=== PATIENT | male | born 1955 | race African-American/Black ===

== ENCOUNTER 2016-03-16 21:04 | Inpatient (IN) | payer OTHER ==
[~2016-03-16] VITALS: Ht 172.7 cm; Wt 49.4 kg
[2016-03-16 21:04] VITALS: BP 117/72
[~2016-03-16 21:04] MED LIST: DOXYCYCLINE100 MG PO; LEUKINE SC; LEVAQUIN750 M1 PO; PROAIR HFA8.5 GM IH; VANCOCIN1000 MG/25 IV; ZITHROMAX250 MG PO; ZOSYN 50 ML50 ML IV; [UNRECOGNIZED DRUG - OTHER] OP
[2016-03-16 21:57] LABS: HEMATOCRIT 28.5 % (42.0-52.0); HEMOGLOBIN 9.2 g/dl (14.0-18.0); LYMPH # 0.4 10*3/uL (1.3-4.4); LYMPH % 7.3 % (27.0-41.0); MEAN CELL VOLUME 89.6 fl (80.0-94.0); MEAN CORPUSCULAR HGB 28.9 pg (27.0-31.0); MEAN CORPUSCULAR HGB CONC 32.3 g/dl (33.0-37.0); MEAN PLATELET VOLUME 8.8 fl (9.6-12.3); MONO # 0.6 10*3/uL (0.1-1.0); MONO % 10.7 % (3.0-9.0); NEUT # 4.9 10*3/uL (2.3-7.9); NEUT % 81.3 % (47.0-73.0); PLATELET COUNT AUTOMATED 78 10*3/uL (130-400); RED BLOOD COUNT 3.18 10*6/uL (4.50-5.90); RED CELL DISTRI WIDTH 19.4 % (0-14.5)
[2016-03-16 22:05] LABS: BILIRUBIN NEGATIVE (NEGATIVE); BLOOD NEGATIVE (NEGATIVE); CLARITY CLEAR (CLEAR); COLOR YELLOW (YELLOW); GLUCOSE NEGATIVE (NEGATIVE); KETONE NEGATIVE (NEGATIVE); LEUKO ESTERASE NEGATIVE (NEGATIVE); NITRITE NEGATIVE (NEGATIVE); PH 5.5 (5.0-9.0); PROTEIN NEGATIVE (NEGATIVE); SPECIFIC GRAVITY 1.025 (1.005-1.030); UROBILINOGEN 0.2 E.U./dl (0.2-1.0)
[2016-03-16 22:07] LABS: INTERNATIONAL NORM RATIO 0.9 (2.0-3.5)
[2016-03-16 22:15] LABS: C-REACTIVE PROTEIN 0.99 MG/DL (0-0.3); CKMB 0.7 ng/ml (0.5-3.6); MAGNESIUM 1.8 mg/dL (1.5-2.1)
[2016-03-16 22:18] LABS: ALBUMIN 2.5 gm/dl (3.1-4.5); ALKALINE PHOSPHATASE 91 U/L (45-117); BILIRUBIN, TOTAL 0.1 mg/dl (0.2-1.0); BUN 19 mg/dl (7-24); CARBON DIOXIDE 28 mmol/L (21-32); CHLORIDE 100 mmol/L (98-107); EST GLOM FILT AFRICAN AMERICAN > 60 ml/min; GLUCOSE 87 mg/dL (65-99); POTASSIUM 3.9 mmol/L (3.5-5.1); SGOT/AST 47 IU/L (3-35); SGPT/ALT 54 U/L (12-78); SODIUM 138 mmol/L (136-145); TOTAL PROTEIN 7.3 gm/dL (6.4-8.2)
[2016-03-16 22:24] LABS: WBC 0-2 wbc/hpf (0-5)
[2016-03-16 22:26] VITALS: BP 114/81
[2016-03-16 22:26] LABS: URINE REFLEX COMMENT NO (NO)
[2016-03-16 23:45] VITALS: BP 123/83
[2016-03-17 01:25] VITALS: BP 112/78
[2016-03-17 08:00] VITALS: BP 118/72
[2016-03-17] MEDS ORDERED: OMEPRAZOLE20 M2 PO (09:17)
[2016-03-17] MEDS ORDERED: DUONEB 3 MG/3 ML3 M1 INH (09:18)
[2016-03-17 12:00] VITALS: BP 128/69
[2016-03-17 16:00] VITALS: BP 113/61
[2016-03-17 20:00] VITALS: BP 145/70
[2016-03-18] VITALS: BP 115/77
[2016-03-18 07:05] LABS: BASO % 0.2 % (0.0-1.0); EOS % 0.3 % (1.0-4.0); HEMATOCRIT 27.2 % (42.0-52.0); HEMOGLOBIN 8.7 g/dl (14.0-18.0); IG # 0.1 10*3/uL (0.0-0.1); LYMPH # 0.4 10*3/uL (1.3-4.4); LYMPH % 6.3 % (27.0-41.0); MEAN CELL VOLUME 89.2 fl (80.0-94.0); MEAN CORPUSCULAR HGB 28.5 pg (27.0-31.0); MEAN PLATELET VOLUME 9.1 fl (9.6-12.3); MONO # 0.4 10*3/uL (0.1-1.0); MONO % 7.5 % (3.0-9.0); NEUT # 4.9 10*3/uL (2.3-7.9); NEUT % 84.5 % (47.0-73.0); PLATELET COUNT AUTOMATED 66 10*3/uL (130-400); RED BLOOD COUNT 3.05 10*6/uL (4.50-5.90); RED CELL DISTRI WIDTH 19.5 % (0-14.5); WHITE BLOOD COUNT 5.8 10*3/uL (4.8-10.8)
[2016-03-18 07:25] LABS: BUN 11 mg/dl (7-24); CARBON DIOXIDE 26 mmol/L (21-32); CHLORIDE 102 mmol/L (98-107); EST GLOM FILT AFRICAN AMERICAN > 60 ml/min; GLUCOSE 161 mg/dL (65-99); POTASSIUM 3.4 mmol/L (3.5-5.1); SODIUM 137 mmol/L (136-145)
[2016-03-18 08:00] VITALS: BP 110/72
[2016-03-18] MEDS ORDERED: LEVAQUIN750 M1 PO (11:27)
[2016-03-18] MEDS ORDERED: ENSURE HIGH PR237 M1 PO ×2 (11:27→11:53)
== END 2016-03-18 13:33 | disposition home or self-care (01) | DRG 871 ==
LOC: ED 21:04 → 5E 03-17 00:14 → EDHOLD 03-17 00:14 → 5E 03-17 00:30
PROVIDERS: Emergency Medicine; Internal Medicine
DX: A41.9 Sepsis, unspecified organism (principal); J18.9 Pneumonia, unspecified organism; E43 Unspecified severe protein-calorie malnutrition; D69.6 Thrombocytopenia, unspecified; C34.91 Malignant neoplasm of unspecified part of right bronchus or lung; D72.810 Lymphocytopenia; Z68.1 Body mass index [BMI] 19.9 or less, adult; R70.0 Elevated erythrocyte sedimentation rate; R79.82 Elevated C-reactive protein (CRP); Z79.899 Other long term (current) drug therapy; Z82.0 Family history of epilepsy and other diseases of the nervous system; Z88.6 Allergy status to analgesic agent; Z88.8 Allergy status to other drugs, medicaments and biological substances